=== PATIENT | female | born 1985 | race American Indian/Alaskan Native ===

== ENCOUNTER 2016-09-22 07:29 | Emergency (ER) | payer OTHER ==
[2016-09-22 07:41] VITALS: BP 142/86
[2016-09-22] MEDS ORDERED: TETRACAINE 0.5% OS ONE (07:46)
[2016-09-22] MEDS ORDERED: MOTRIN PO ONE (07:46)
[2016-09-22] MEDS ORDERED: FUL-GLO OP ONE (07:46)
--- NOTE | 2016-09-22 07:46 | Emergency Department Report ---
ED Eye Problem HPI - General Chief complaint: Eye Problems Stated complaint: EYE IRRITATION Time Seen by Provider: 09/22/16 07:43 Source: patient Mode of arrival: Ambulatory Limitations: No Limitations - History of Present Illness Initial comments: She reports that her left eye is irritated, redness and drainage with pain. Said since this morning. She said her left thigh pain is centered. Denies any trauma. When asked, positive foreign body sensation. Denies any loss of vision. She says she is supposed to wear glasses but she does not have with her. TD is not up-to-date. chief complaint: eye pain, eye redness, foreign body (sensation) -: This morning Onset Description: sudden Location: left eye Place: home If Injury: none Eye Symptoms: burning, redness, pain, foreign body sensation, itching, discharge , photophobia Severity: severe Severity scale (0 -10): 10 If Pain, Quality: burning Consistency: constant Context: other (unknown) Associated Symptoms: denies: headache, neck pain, nausea/vomiting, cough, rhinorrhea, fever, shortness of breath Treatments Prior to Arrival: none - Related Data Patient Tetanus UTD: No Previous Rx's Medication Instructions Recorded Last Taken Type Acetaminophen/Codeine [Tylenol 1 tab PO Q6H PRN #12 tab 09/22/16 Unknown Rx /Codeine # 3 tab] Gentamicin 0.3% Ophth Soln 1 drops OP Q4H #1 bottle 09/22/16 Unknown Rx Ibuprofen [Motrin] 600 mg PO Q8H PRN #15 tablet 09/22/16 Unknown Rx Allergies Allergy/AdvReac Type Severity Reaction Status Date / Time Sulfa (Sulfonamide Allergy Swelling Verified 09/22/16 07:36 Antibiotics) ED Review of Systems ROS: Stated complaint: EYE IRRITATION Other details as noted in HPI Comment: All other systems reviewed and negative Constitutional: denies: chills, fever Eyes: eye pain, eye discharge. denies: vision change ENT: denies: ear pain, throat pain, dental pain, hearing loss, epistaxis, congestion Respiratory: no symptoms reported Cardiovascular: denies: chest pain, palpitations, edema, syncope Gastrointestinal: denies: abdominal pain, nausea, vomiting Musculoskeletal: denies: back pain, arthralgia Skin: denies: rash Neurological: denies: headache, weakness, numbness, paresthesias, confusion, abnormal gait, vertigo ED Past Medical Hx - Past Medical History Previous Medical History?: Yes Hx Hypertension: No Hx Heart Attack/AMI: No Hx Congestive Heart Failure: No Hx Diabetes: No Hx Deep Vein Thrombosis: No Hx Liver Disease: No Hx Renal Disease: No Hx Sickle Cell Disease: No Hx Seizures: No Hx Psychiatric Treatment: Yes (DEPRESSION) Hx Asthma: No Hx COPD: No Hx HIV: No - Surgical History Past Surgical History?: Yes Additional Surgical History: X 2 - Family History Family history: hypertension - Social History Smoking Status: Current Every Day Smoker Substance Use Type: Alcohol - Medications Home Medications: Home Medications Medication Instructions Recorded Confirmed Last Taken Type Acetaminophen/Codeine [Tylenol 1 tab PO Q6H PRN #12 tab 09/22/16 Unknown Rx /Codeine # 3 tab] Gentamicin 0.3% Ophth Soln 1 drops OP Q4H #1 bottle 09/22/16 Unknown Rx Ibuprofen [Motrin] 600 mg PO Q8H PRN #15 tablet 09/22/16 Unknown Rx ED Physical Exam - General Limitations: No Limitations General appearance: alert, in no apparent distress - Head Head exam: Present: atraumatic, normocephalic, normal inspection - Eye Eye exam: Present: PERRL, EOMI, conjunctival injection. Absent: scleral icterus , nystagmus, periorbital swelling, periorbital tenderness Pupils: Present: normal accommodation - Expanded Eye Exam Expanded Eyelids: Normal Inspection: Right, Swelling: Left (left upper lid puffy) Pupils: Regular, Round: Bilateral, Reactive: Bilateral Sclera/Conjunctival: Normal Inspection: Right, Injection: Left Anterior chamber: Normal Inspection: Bilateral Posterior chamber: Normal Inspection: Bilateral Visual acuity (R) = 20/: 50 (20/50 OU) Visual acuity (L) = 20/: 70 With correction: No (uncorrect) - ENT ENT exam: Present: normal exam, normal orophraynx, mucous membranes moist, TM's normal bilaterally, normal external ear exam - Neck Neck exam: Present: normal inspection, full ROM. Absent: tenderness, meningismus, lymphadenopathy - Respiratory Respiratory exam: Present: normal lung sounds bilaterally. Absent: respiratory distress, chest wall tenderness - Cardiovascular Cardiovascular Exam: Present: regular rate, normal rhythm, normal heart sounds - Extremities Exam Extremities exam: Present: normal inspection, full ROM, normal capillary refill. Absent: tenderness, pedal edema, joint swelling, calf tenderness - Back Exam Back exam: Present: normal inspection, full ROM. Absent: tenderness - Neurological Exam Neurological exam: Present: alert, oriented X3, normal gait, reflexes normal. Absent: motor sensory deficit - Psychiatric Psychiatric exam: Present: normal affect, normal mood - Skin Skin exam: Present: warm, dry, intact, normal color. Absent: rash ED Course Vital Signs 09/22/16 07:38 Temperature 98.5 F Pulse Rate 84 Respiratory 17 Rate Blood Pressure 142/86 O2 Sat by Pulse 98 Oximetry - Reevaluation(s) Reevaluation #1: 09/22/16 08:37 Given Motrin 800 mg in the emergency room and boostrix 0.5 mg mls. - Procedure Description Procedures done: EYE PROCEDURE:Left eye examined under portillo lamp. 2 drops of tetracaine to lt eye , followed by flouroscein stain. Patient with left corneal abrasion rt lateral cornea. Eye flushed with NS. TD updated. Tolerated procedure well. ED Medical Decision Making - Medical Decision Making Course: Patient with corneal abrasion, left eye pain. See procedure note for portillo lamp testing. Motrin 800 mg by mouth, Boostrix 0.5 ml injection in the emergency room. I Discussed with patient diagnosis and treatment plan. F/U With outpatient shopper's aide in 1 day. Patient discharged home with prescription for gentamicin ophthalmic, Motrin and Tylenol 3. Critical care attestation.: If time is entered above; I have spent that time in minutes in the direct care of this critically ill patient, excluding procedure time. ED Disposition Clinical Impression: Acute left eye pain Left corneal abrasion Qualifiers: Encounter type: initial encounter Qualified Code(s): S05.02XA - Injury of conjunctiva and corneal abrasion without foreign body, left eye, initial encounter Disposition: DC-01 TO HOME OR SELFCARE Is pt being admited?: No Does the pt Need Aspirin: No Condition: Stable Instructions: Corneal Abrasion (ED) Additional Instructions: Follow-up with eye doctor in 24 hours Take Medication as prescribed Tylenol #3 can cause drowsiness so do not drive with heavy machinery while taking this medication Prescriptions: Acetaminophen/Codeine [Tylenol /Codeine # 3 tab] 1 tab PO Q6H PRN #12 tab PRN Reason: Pain Gentamicin 0.3% Ophth Soln 1 drops OP Q4H #1 bottle Ibuprofen [Motrin] 600 mg PO Q8H PRN #15 tablet PRN Reason: Pain Referrals: PRIMARY CARE, [Primary Care Provider] - 3-5 Days ROSY PARIKH MD [Staff Physician] - 24 Hours Forms: Work/School Release Form(ED)
[2016-09-22] MEDS ORDERED: BOOSTRIX IM ONE (08:17)
== END 2016-09-22 08:50 | disposition home or self-care (01) ==
LOC: ED 07:29
DX: S05.02XA Injury of conjunctiva and corneal abrasion without foreign body, left eye, initial encounter (principal); F32.9 Major depressive disorder, single episode, unspecified; F17.210 Nicotine dependence, cigarettes, uncomplicated; Z88.2 Allergy status to sulfonamides; X58.XXXA Exposure to other specified factors, initial encounter; Y93.89 Activity, other specified; Y92.89 Other specified places as the place of occurrence of the external cause; Y99.8 Other external cause status
CPT/HCPCS: 90471; 90715; 99283

== ENCOUNTER 2018-01-05 10:19 | Emergency (ER) | payer OTHER ==
[2018-01-05] MEDS ORDERED: KEFLEX PO ONE (11:42)
[2018-01-05] MEDS ORDERED: XYLOCAINE 1% 20 mL INFILTRATI ONE (11:42)
[2018-01-05] MEDS ORDERED: NACL 0.9% IR ONE (11:42)
[2018-01-05] MEDS ORDERED: ULTRAM PO ONE (11:43)
--- NOTE | 2018-01-05 11:44 | Emergency Department Report ---
ED Laceration HPI - HPI Chief Complaint: Wound/Laceration Stated Complaint: ALMOST CUT FINGER OFF Time Seen by Provider: 01/05/18 11:39 Occurred When: Today Location: Upper Extremity Severity: mild Tetanus Status: Up to Date Laceration Symptoms: Yes Pain, No Foreign Body Sensation, No Numbness, No Weakness Other History: CUT R FINGER W KITCHEN KNIFE WHILE CUTTING PLASTIC. BLEEDING CONTROLLED. ED Review of Systems ROS: Stated complaint: ALMOST CUT FINGER OFF Other details as noted in HPI Comment: All other systems reviewed and negative Constitutional: denies: chills Eyes: denies: eye pain ENT: denies: throat pain Respiratory: denies: orthopnea Cardiovascular: denies: palpitations Endocrine: denies: excessive sweating Gastrointestinal: denies: abdominal pain Genitourinary: denies: urgency Musculoskeletal: denies: back pain Skin: as per HPI, lesions (LAC LEFT INDEX FINGER) Neurological: denies: weakness Psychiatric: denies: depression Hematological/Lymphatic: denies: easy bleeding ED Past Medical Hx - Past Medical History Hx Hypertension: No Hx CVA: No Hx Heart Attack/AMI: No Hx Congestive Heart Failure: No Hx Diabetes: No Hx Deep Vein Thrombosis: No Hx Liver Disease: No Hx Renal Disease: No Hx Sickle Cell Disease: No Hx Seizures: No Hx Psychiatric Treatment: Yes (DEPRESSION) Hx Asthma: No Hx COPD: No Hx HIV: No - Surgical History Past Surgical History?: No Additional Surgical History: X 2 - Family History Family history: no significant - Social History Smoking Status: Current Every Day Smoker Substance Use Type: Alcohol - Medications Home Medications: Home Medications Medication Instructions Recorded Confirmed Last Taken Type cephALEXin [Keflex] 500 mg PO Q12HR #20 cap 01/05/18 Unknown Rx Laceration Physical Exam - Exam General: Vital signs noted. No distress. Alert and acting appropriately. SUPERFICIAL WOUND R INDEX FINGER RAPID CAP REFILL FULL ROM R INDEX FINGER OVER 2ND DIGIT Wound Length (cm): 1 Laceration Location: Upper Extremity Laceration Exam: Yes Normal Distal CMS, No Foreign Body, No Exposed Tendon, Vessel, or Nerve, No Tendon Injury ED Course Vital Signs 01/05/18 10:25 Temperature 98 F Pulse Rate 63 Respiratory 16 Rate Blood Pressure 129/69 O2 Sat by Pulse 97 Oximetry - Laceration /Wound Repair FINGER Wound Location: upper extremity (R FINGER) Wound Length (cm): 1 Wound's Depth, Shape: superficial Wound Explored: clean Irrigated w/ Saline (ccs): 50 Betadine Prep?: Yes Anesthesia: 1% Lidocaine Volume Anesthetic (ccs): 2 (DIGITAL BLOCK) Wound Debrided: minimal Wound Repaired With: sutures Suture Size/Type: 3:0 Number of Sutures: 3 Layer Closure?: No Sterile Dressing Applied?: Yes Progress: FINGER SPLINT AND DRESSING - Nerve Block Consent Obtained: emergent situation Time Out Performed: Yes Local Anesthetic Used: Lidocaine 1% Amount of anesthesia used: 2 Side: right Nerve Blocks: digital Procedure Successful: Yes Complications: none Patient Tolerated Procedure: well ED Medical Decision Making - Medical Decision Making TDAP UTD KITCHEN KNIFE SUPERFICIAL V SHAPED AVULSION LAC FULL ROM N/V INTACT RAPID CAP REFILL ANBX GIVEN OVER JOINT SPACE - Differential Diagnosis LAC Critical care attestation.: If time is entered above; I have spent that time in minutes in the direct care of this critically ill patient, excluding procedure time. ED Disposition Clinical Impression: Laceration Disposition: DC-01 TO HOME OR SELFCARE Is pt being admited?: No Does the pt Need Aspirin: No Condition: Stable Instructions: Laceration (ED), Finger Laceration (ED) Additional Instructions: KEEP WOUND CLEAN AND KEEP COVERED MOTRIN OR TYLENOL FOR PAIN MEDICATION ORDERED TODAY UNTIL GONE HYDRATE WELL WITH WATER DIET AND ACTIVITY TOLERATED RETURN IN 7 DAYS FOR SUTURE REMOVAL Prescriptions: cephALEXin [Keflex] 500 mg PO Q12HR #20 cap Referrals: PRIMARY CARE, [Primary Care Provider] - 3-5 Days Forms: Work/School Release Form(ED) Time of Disposition: 11:44
[2018-01-05 12:41] VITALS: BP 135/90
== END 2018-01-05 12:49 | disposition home or self-care (01) ==
LOC: ED 10:19
DX: S61.210A Laceration without foreign body of right index finger without damage to nail, initial encounter (principal); F32.9 Major depressive disorder, single episode, unspecified; F17.200 Nicotine dependence, unspecified, uncomplicated; Z88.2 Allergy status to sulfonamides; W26.0XXA Contact with knife, initial encounter; Y93.89 Activity, other specified; Y92.090 Kitchen in other non-institutional residence as the place of occurrence of the external cause; Y99.8 Other external cause status
CPT/HCPCS: 99282